=== PATIENT | female | born 1975 | race Caucasian/White ===

== ENCOUNTER 2022-06-01 10:15 | Outpatient (CLI) | payer BC, SELFPAY ==
--- NOTE | 2022-06-01 10:15 | CRLHL7_ITS ---
For Patients: As a result of the Century Cures Act, medical imaging exams and procedure reports are released immediately into your electronic medical record. You may view this report before your referring provider. If you have questions, please contact your health care provider. BILATERAL SCREENING MAMMOGRAM WITH COMPUTER-AIDED DETECTION AND TOMOSYNTHESIS TECHNIQUE: CC and MLO views were obtained. These mammographic images have been obtained using full-field digital technique. These mammographic images were interpreted with the benefit of computer-aided detection. Breast Tomosynthesis was used in this interpretation. COMPARISON FILM: 05/19/21, 03/14/20, 12/22/18. FINDINGS: The breasts are heterogeneously dense, which may obscure small masses IMPRESSION: There is no radiographic evidence for malignancy. ASSESSMENT: BI-RADS Category 1: Negative RECOMMENDATION: Routine screening mammogram in 1 year. A lay language report of this examination will be provided to the patient. Rene Bernardo M.D. Diagnostic Radiologist [email or web address] KAYLEE/Dictated by: Rene Bernardo MD @ 06/04/2022 10:26:00 AM (Electronically Signed)
== END 2022-06-01 10:16 | disposition home or self-care (01) ==
LOC: MAMMO 10:16
PROVIDERS: PCP Physician Assistant Medical; Visit Provider Physician Assistant Medical
DX: Z12.31 Encounter for screening mammogram for malignant neoplasm of breast (principal); R92.2 Inconclusive mammogram
CPT/HCPCS: 77063; 77067

== ENCOUNTER 2023-06-03 13:12 | Outpatient (CLI) | payer BC, SELFPAY ==
--- NOTE | 2023-06-03 13:20 | MM_ITS ---
Patient: JUNIOR PATEL CHASITY Facility:?[facility] Patient ID:?[id number] Site Patient ID:?[id number]. Site :?[id number] Study:?XRay-Breast Bilateral 3D W/CAD-06/03/2023 2:14:56 PM Ordering Physician:SHAD Final Report: BILATERAL SCREENING MAMMOGRAM WITH COMPUTER-AIDED DETECTION AND TOMOSYNTHESIS TECHNIQUE: CC and MLO views were obtained. These mammographic images have been obtained using full-field digital technique. These mammographic images were interpreted with the benefit of computer-aided detection. Breast Tomosynthesis was used in this interpretation. COMPARISON FILM: 06/01/22, 03/14/20, 12/22/18. FINDINGS: The breasts are heterogeneously dense, which may obscure small masses. IMPRESSION: There is no radiographic evidence for malignancy. ASSESSMENT: BI-RADS Category 1: Negative RECOMMENDATION: Routine screening mammogram in 1 year. A lay language report of this examination will be provided to the patient. Rene Bernardo M.D. Diagnostic Radiologist [email or web address] DSM/sp R& Transcribed: 6:46 p.m. SP/Dictated by: Rene Bernardo MD @ 06/04/2023 8:58:00 AM Signed by:Mike Bernardo MD @06/05/2023 5:43:26 AM (Electronic Signature)
== END 2023-06-03 13:13 | disposition home or self-care (01) ==
LOC: MAMMO 13:15
PROVIDERS: PCP Physician Assistant Medical; Visit Provider Nurse Practitioner
DX: Z12.31 Encounter for screening mammogram for malignant neoplasm of breast (principal); R92.2 Inconclusive mammogram
CPT/HCPCS: 77063; 77067

== ENCOUNTER 2023-07-19 08:10 | Outpatient (CLI) | payer BC, SELFPAY | END 2023-07-19 08:11 | disposition home or self-care (01) | LOC: NFLDREF 07-22 06:52 | PROVIDERS: PCP Physician Assistant Medical; Referring Provider Physician Assistant Medical; Visit Provider Physician Assistant Medical | DX: M25.50 Pain in unspecified joint (principal); E11.9 Type 2 diabetes mellitus without complications; Z13.220 Encounter for screening for lipoid disorders | CPT/HCPCS: 80053; 80061; 82043; 82570; 83090; 84443; 86039; 86140; 86200; 86431; 86703; 86803; 86812 ==

== ENCOUNTER 2023-08-22 09:17 | Outpatient (CLI) | payer BC, SELFPAY ==
--- OUTSIDE RECORDS SUMMARY | 2023-08-22 09:20 | XMS_ITS | Patient Health Record ---
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 Name Role Phone None, No PCP Primary Care Provider UnavailDarrius Mast Unavailable [phone] Lucie Rivera Unavailable [phone] Darrius Kwan Unavailable [phone] Waleska Hanley Unavailable [phone] Jesi Khan Unavailable [phone] EuNieves mclaughlin Unavailable [phone] Melissa Farrar Unavailable [phone] Allergies Allergen (clinical drug ingredient) Drug/Non Drug Allergy documented on EMR Reaction Allergy Type Onset Date Status PredniSONE Unknown Drug Allergy Active Results Component Value Reference Range Notes TESTOSTERONE, TOTAL, LC/MS/M S Reviewed date:09/02/2022 07:08:27 AM Interpretation: Performing Lab:Keanu PaintingFusion-[address] [address], [address] EnglandDsmkusrftkUV[address] Kin Prieto MD Notes/Report: TESTOSTERONE, TOTAL, MS 88 2-45 ng/dL For additional information, please refer to https://education.[email or web address].com/faq/TotalTestoste roneLCMSMS (This link is being provided for informational/educational purposes only.) (Note) This test was developed and its analytical performance characteristics have been determined by [email or web address]. It has not been cleared or approved by the FDA. This assay has been validated pursuant to the CLIA regulations and is used for clinical purposes. FAN med fusion [address] [facility] [place] [address],[address] [facility] [address] [phone] Kin Prieto MD VITAMIN D,25-OH,TOTAL,IA Reviewed date:09/02/2022 07:08:27 AM Interpretation: Performing Lab:JAY JAY niiu-D[address]om [address], [place] BlofYK[address] Herbert Miller Notes/Report: VITAMIN D,25-OH,TOTAL,IA 57 30-100 ng/mL Vitamin D Status 25-OH Vitamin D: Deficiency: <20 ng/mL Insufficiency: 20 - 29 ng/mL Optimal: > or = 30 ng/mL For 25-OH Vitamin D testing on patients on D2-supplementation and patients for whom quantitation of D2 and D3 fractions is required, the QuestAssureD(TM) 25-OH VIT D, (D2,D3), LC/MS/MS is recommended: order code 96074 (patients >2yrs). See Note 1 Note 1 For additional information, please refer to http://education.DataTorrent.DNAtriX/faq/ZHP697 (This link is being provided for informational/ educational purposes only.) FERRITIN Reviewed date:09/02/2022 07:08:27 AM Interpretation: Performing Lab:JAY JAY niiu-[address]om [address], [place] QunwWE[address] Herbert Miller Notes/Report: FERRITIN 245 16-232 ng/mL FSH Reviewed date:09/02/2022 07:08:27 AM Interpretation: Performing Lab:JAY JAY niiu-D[address]om [address], [place] VillalpandoMwpjLN[address] Herbert Miller Notes/Report: FSH 26.9 Reference Range Follicular Phase 2.5-10.2 Mid-cycle Peak 3.1-17.7 Luteal Phase 1.5- 9.1 Postmenopausal 23.0-116.3 VITAMIN B12 Reviewed date:09/02/2022 07:08:27 AM Interpretation: Performing Lab:JAY JAY niiu-[address], [place] LplfSH[address] Herbert Miller Notes/Report: VITAMIN B12 906 964-5175 pg/mL Please Note: Although the reference range for vitamin B12 is 200-1100 pg/mL, it has been reported that between 5 and 10% of patients with values between 200 and 400 pg/mL may experience neuropsychiatric and hematologic abnormalities due to occult B12 deficiency; less than 1% of patients with values above 400 pg/mL will have symptoms. ESTRADIOL Reviewed date:09/02/2022 07:08:27 AM Interpretation: Performing Lab:Essence GOYAL-Corey [address], [place] VillalpandoQuheKW[address] Herbert Miller Notes/Report: ESTRADIOL 81 Reference Range Follicular Phase: 19-144 Mid-Cycle: 64-357 Luteal Phase: 56-214 Postmenopausal: < or = 31 Reference range established on post-pubertal patient population. No pre-pubertal reference range established using this assay. For any patients for whom low Estradiol levels are anticipated (e.g. males, pre-pubertal children and hypogonadal/post-menopausal females), the niiu [facility] Estradiol, Ultrasensitive, LCMSMS assay is recommended (order code 23403). Please note: patients being treated with the drug fulvestrant (Faslodex(R)) have demonstrated significant interference in immunoassay methods for estradiol measurement. The cross reactivity could lead to falsely elevated estradiol test results leading to an inappropriate clinical assessment of estrogen status. niiu order code 95650-Aouxqzitf, Ultrasensitive LC/MS/MS demonstrates negligible cross reactivity with fulvestrant. CRP - C-REACTIVE PROTEIN Reviewed date:09/02/2022 07:08:27 AM Interpretation: Performing Lab:Essence GOYAL-Corey [address], [place] VillalpandoUylfHV[address] Herbert Miller Notes/Report: C-REACTIVE PROTEIN 6.2 <8.0 mg/L Test, Urine Reviewed date:05/14/2023 04:33:16 PM Interpretation: Performing Lab: Notes/Report: Test, Urine Negative Negative - CULTURE, URINE, ROUTINE Reviewed date:02/28/2023 04:21:35 PM Interpretation: Performing Lab:Essence GOYAL-Corey [address], [place]y PittmanDjpkJB[address] Herbert Miller Notes/Report: CULTURE, URINE, ROUTINE SEE NOTE CULTURE, URINE, ROUTINE Micro Number: [id number] Test Status: Final Specimen Source: Urine, clean catch Specimen Quality: Adequate Result: 50,000-100,000 CFU/mL of Escherichia coli E.coli INT FAUSTINO AMOX/CLAVULANATE S <=2 AMP/SULBACTAM S <=2 CEFAZOLIN NR <=4 2 CEFTAZIDIME S <=1 CEFTRIAXONE S <=0.25 CIPROFLOXACIN S <=0.06 GENTAMICIN S <=1 LEVOFLOXACIN S <=0.12 MEROPENEM S <=0.25 NITROFURANTOIN S <=16 TRIMETHOPRIM/SULFA S <=20 S=Susceptible I=Intermediate R=Resistant * = Not Tested NR = Not Reported NN = See Therapy Comments THERAPY COMMENTS Note 1: For infections other than uncomplicated UTI caused by E. coli, K. pneumoniae or P. mirabilis: Cefazolin is resistant if FAUSTINO > or = 8 mcg/mL. (Distinguishing susceptible versus intermediate for isolates with FAUSTINO < or = 4 mcg/mL requires additional testing.) Note 2: For uncomplicated UTI caused by E. coli, K. pneumoniae or P. mirabilis: Cefazolin is susceptible if FAUSTINO <32 mcg/mL and predicts susceptible to the oral agents cefaclor, cefdinir, cefpodoxime, cefprozil, cefuroxime, cephalexin and loracarbef. BD Affirm Reviewed date:02/20/2023 09:16:06 AM Interpretation: Performing Lab: Notes/Report: Trichomoniasis NEG Negative - Bacterial Vaginosis NEG Negative - Yeast NEG Negative - Urinalysis, Routine - IH Reviewed date:02/18/2023 01:28:22 PM Interpretation: Performing Lab: Notes/Report: Urine Color Yellow Yellow - Irma Appearance Clear Clear - Glucose Neg Bilirubin Neg Ketone Neg Specific [place] 1.025 Blood 10 jm/uL pH 5.5 Protein Neg Urobilinogen 0.2 mg/dL Nitrite Neg Leukocytes 15 Cisco/uL Urinalysis, Routine - IH Reviewed date:02/14/2023 10:56:48 AM Interpretation: Performing Lab: Notes/Report: Urine Color Yellow Yellow - Irma Appearance Clear Clear - Glucose - Bilirubin - Ketone - Specific [place] 1.010 Blood +- pH 6.0 Protein - Urobilinogen - Nitrite - Leukocytes +- TESTOSTERONE, TOTAL, LC/MS/M S Reviewed date:02/18/2023 01:00:30 PM Interpretation: Performing Lab:Garima, MedFusion-[address] [address], [address], EobzjdhcxhXU[address] Peter Grant MD Notes/Report: TESTOSTERONE, TOTAL, MS 85 2-45 ng/dL For additional information, please refer to [email or web address]/faq/TotalTestoste ivannaeLCMSMS (This link is being provided for informational/educational purposes only.) (Note) This test was developed and its analytical performance characteristics have been determined by [email or web address]. It has not been cleared or approved by the FDA. This assay has been validated pursuant to the CLIA regulations and is used for clinical purposes. NJF med fusion [address] [address],[address] [facility] [address] Peter Grant MD VITAMIN D,25-OH,TOTAL,IA Reviewed date:02/18/2023 01:00:30 PM Interpretation: Performing Lab:Essence GOYAL Virtual Fairground-Corey [address], DNA GuideGosaKY[address] Herbert Miller Notes/Report: VITAMIN D,25-OH,TOTAL,IA 64 30-100 ng/mL Vitamin D Status 25-OH Vitamin D: Deficiency: <20 ng/mL Insufficiency: 20 - 29 ng/mL Optimal: > or = 30 ng/mL For 25-OH Vitamin D testing on patients on D2-supplementation and patients for whom quantitation of D2 and D3 fractions is required, the QuestAssureD(TM) 25-OH VIT D, (D2,D3), LC/MS/MS is recommended: order code 43931 (patients >2yrs). See Note 1 Note 1 For additional information, please refer to http://Fullscreen.DataTorrent.DNAtriX/faq/IYK920 (This link is being provided for informational/ educational purposes only.) FSH Reviewed date:02/18/2023 01:00:30 PM Interpretation: Performing Lab:Essence GOYAL Virtual Fairground-[address], Qnect, llcTmuiDX[address] Herbert Miller Notes/Report: FSH 50.5 Reference Range Follicular Phase 2.5-10.2 Mid-cycle Peak 3.1-17.7 Luteal Phase 1.5- 9.1 Postmenopausal 23.0-116.3 VITAMIN B12 Reviewed date:02/18/2023 01:00:30 PM Interpretation: Performing Lab:JAY JAY Essence Virtual Fairground-Corey [address], [place] PittmanRuamXI[address] Herbert Miller Notes/Report: VITAMIN B12 389 252-6924 pg/mL ESTRADIOL Reviewed date:02/18/2023 01:00:29 PM Interpretation: Performing Lab:JAY JAY Essence Andrade-Corey [address], [place] VillalpandoAlwtGB[address] Herbert Miller Notes/Report: ESTRADIOL 23 Reference Range Follicular Phase: 19-144 Mid-Cycle: 64-357 Luteal Phase: 56-214 Postmenopausal: < or = 31 Reference range established on post-pubertal patient population. No pre-pubertal reference range established using this assay. For any patients for whom low Estradiol levels are anticipated (e.g. males, pre-pubertal children and hypogonadal/post-menopausal females), the niiu [facility] Estradiol, Ultrasensitive, LCMSMS assay is recommended (order code 58996). Please note: patients being treated with the drug fulvestrant (Faslodex(R)) have demonstrated significant interference in immunoassay methods for estradiol measurement. The cross reactivity could lead to falsely elevated estradiol test results leading to an inappropriate clinical assessment of estrogen status. niiu order code 30028-Khyimydos, Ultrasensitive LC/MS/MS demonstrates negligible cross reactivity with fulvestrant. CRP - C-REACTIVE PROTEIN Reviewed date:02/18/2023 01:00:29 PM Interpretation: Performing Lab:JAY JAY Essence Andrade-Corey [address], [place] VillalpandoOcrqIA[address] Herbert Miller Notes/Report: C-REACTIVE PROTEIN 12.4 <8.0 mg/L Test, Urine Reviewed date:01/23/2023 02:30:43 PM Interpretation: Performing Lab: Notes/Report: Test, Urine negative Negative - TESTOSTERONE, TOTAL, LC/MS/M S Reviewed date:11/23/2022 08:43:07 AM Interpretation: Performing Lab:Garima MedFusion-[address]xus[address] [address], [address], TragjbdftePH[address] Peter Grant MD Notes/Report: 0; 0; 0; 0; 0; 0; 0 TESTOSTERONE, TOTAL, MS 92 2-45 ng/dL For additional information, please refer to https://education.Linkurious/faq/TotalTestoste roneLCMSMS (This link is being provided for informational/educational purposes only.) (Note) This test was developed and its analytical performance characteristics have been determined by [email or web address]. It has not been cleared or approved by the FDA. This assay has been validated pursuant to the CLIA regulations and is used for clinical purposes. [facility] med fusion [address] [address],[address] [facility] [address] Peter Grant MD VITAMIN D,25-OH,TOTAL,IA Reviewed date:11/23/2022 08:43:07 AM Interpretation: Performing Lab:Essence GOYAL Virtual Fairground-[address], [place] LfvgCW[address] Herbert Miller Notes/Report: 0; 0; 0; 0; 0; 0; 0 VITAMIN D,25-OH,TOTAL,IA 67 30-100 ng/mL Vitamin D Status 25-OH Vitamin D: Deficiency: <20 ng/mL Insufficiency: 20 - 29 ng/mL Optimal: > or = 30 ng/mL For 25-OH Vitamin D testing on patients on D2-supplementation and patients for whom quantitation of D2 and D3 fractions is required, the QuestAssureD(TM) 25-OH VIT D, (D2,D3), LC/MS/MS is recommended: order code 81289 (patients >2yrs). See Note 1 Note 1 For additional information, please refer to http://education.DataTorrent.DNAtriX/faq/TFZ767 (This link is being provided for informational/ educational purposes only.) FERRITIN Reviewed date:11/23/2022 08:43:07 AM Interpretation: Performing Lab:JAY JAY niiu-Corey [address], [place] EwleYR[address] Herbert Miller Notes/Report: 0; 0; 0; 0; 0; 0; 0 FERRITIN 295 16-232 ng/mL FSH Reviewed date:11/23/2022 08:43:07 AM Interpretation: Performing Lab:JAY JAY niiu-Corey [address], [place] YcvtDQ[address] Herbert Miller Notes/Report: 0; 0; 0; 0; 0; 0; 0 FSH 17.6 Reference Range Follicular Phase 2.5-10.2 Mid-cycle Peak 3.1-17.7 Luteal Phase 1.5- 9.1 Postmenopausal 23.0-116.3 VITAMIN B12 Reviewed date:11/23/2022 08:43:07 AM Interpretation: Performing Lab:Essence GOYAL-Corey [address] [facility], Corey PittmanEycrMN[address] Herbert Miller Notes/Report: 0; 0; 0; 0; 0; 0; 0 VITAMIN B12 620 806-4597 pg/mL ESTRADIOL Reviewed date:11/23/2022 08:43:07 AM Interpretation: Performing Lab:Essence GOYAL-Corey [address], [place]y PittmanHpufYS[address] Herbert Miller Notes/Report: 0; 0; 0; 0; 0; 0; 0 ESTRADIOL 116 Reference Range Follicular Phase: 19-144 Mid-Cycle: 64-357 Luteal Phase: 56-214 Postmenopausal: < or = 31 Reference range established on post-pubertal patient population. No pre-pubertal reference range established using this assay. For any patients for whom low Estradiol levels are anticipated (e.g. males, pre-pubertal children and hypogonadal/post-menopausal females), the niiu [facility] Estradiol, Ultrasensitive, LCMSMS assay is recommended (order code 81986). Please note: patients being treated with the drug fulvestrant (Faslodex(R)) have demonstrated significant interference in immunoassay methods for estradiol measurement. The cross reactivity could lead to falsely elevated estradiol test results leading to an inappropriate clinical assessment of estrogen status. niiu order code 79082-Vddoirngr, Ultrasensitive LC/MS/MS demonstrates negligible cross reactivity with fulvestrant. CRP - C-REACTIVE PROTEIN Reviewed date:11/23/2022 08:43:06 AM Interpretation: Performing Lab:Essence GOYAL [facility]-[address], [place] PittmanIdzfNU[address] Herbert Miller Notes/Report: 0; 0; 0; 0; 0; 0; 0 C-REACTIVE PROTEIN 9.2 <8.0 mg/L Test, Urine Reviewed date:09/03/2022 09:25:29 AM Interpretation: Performing Lab: Notes/Report: Test, Urine Negative Negative - FERRITIN Reviewed date:06/06/2023 02:48:11 PM Interpretation: Performing Lab:JAY JAY, niiu-Corey [address], [place]y PittmanIiitVN[address] Herbert Miller Notes/Report: 0; 0; 0; 0; 0; 0; 0 FERRITIN 365 16-232 ng/mL VITAMIN D,25-OH,TOTAL,IA Reviewed date:06/06/2023 02:48:11 PM Interpretation: Performing Lab:JAY JAY, niiu-Corey [address], [place] QmcqSK[address] Herbert Miller Notes/Report: 0; 0; 0; 0; 0; 0; 0 VITAMIN D,25-OH,TOTAL,IA 81 30-100 ng/mL Vitamin D Status 25-OH Vitamin D: Deficiency: <20 ng/mL Insufficiency: 20 - 29 ng/mL Optimal: > or = 30 ng/mL For 25-OH Vitamin D testing on patients on D2-supplementation and patients for whom quantitation of D2 and D3 fractions is required, the QuestAssureD(TM) 25-OH VIT D, (D2,D3), LC/MS/MS is recommended: order code 62723 (patients >2yrs). See Note 1 Note 1 For additional information, please refer to http://Fullscreen.Runfaces/faq/RRT742 (This link is being provided for informational/ educational purposes only.) TESTOSTERONE, TOTAL, LC/MS/M S Reviewed date:06/06/2023 02:48:11 PM Interpretation: Performing Lab:Lola3Rhianna, MedFusion-UuaGzykvq[address] [address], [address], YbtgzdnezwOF[address] Myrtle Rosado MD Notes/Report: 0; 0; 0; 0; 0; 0; 0 TESTOSTERONE, TOTAL, MS 60 2-45 ng/dL For additional information, please refer to [email or web address]/faq/TotalTestoste ivannaeLCMSMS (This link is being provided for informational/educational purposes only.) (Note) This test was developed and its analytical performance characteristics have been determined by [email or web address]. It has not been cleared or approved by the FDA. This assay has been validated pursuant to the CLIA regulations and is used for clinical purposes. FAN med fusion [address] [address],[address] [facility] [address] Peter Grant MD Test, Urine Reviewed date:08/12/2023 01:07:16 PM Interpretation: Performing Lab: Notes/Report: GLUCOSE, RANDOM Reviewed date:07/01/2023 03:12:17 PM Interpretation: Performing Lab:CB, niiu-[address], [place]y VillalpandoXzbzDP[address] Herbert Miller Notes/Report: 0; 0; 0 GLUCOSE, RANDOM 149 <140 mg/dL It is recommended that a fasting glucose level be performed. CRP - C-REACTIVE PROTEIN Reviewed date:07/01/2023 03:12:17 PM Interpretation: Performing Lab:CB, niiu-[address], [place] XmcwNY[address] Herbert Miller Notes/Report: 0; 0; 0 C-REACTIVE PROTEIN 7.5 <8.0 mg/L HEMOGLOBIN A1c Reviewed date:07/01/2023 03:12:17 PM Interpretation: Performing Lab:CB, niiu-[address], [place] SlacQX[address] Herbert Miller Notes/Report: 0; 0; 0 HEMOGLOBIN A1c 6.4 <5.7 % of total Hgb For someone without known diabetes, a hemoglobin A1c value between 5.7% and 6.4% is consistent with prediabetes and should be confirmed with a follow-up test. For someone with known diabetes, a value <7% indicates that their diabetes is well controlled. A1c targets should be individualized based on duration of diabetes, age, comorbid conditions, and other considerations. This assay result is consistent with an increased risk of diabetes. Currently, no consensus exists regarding use of hemoglobin A1c for diagnosis of diabetes for children. This test was performed on the Vito jake c503 platform. Effective 06/05/23, a change in test platforms from the [employer] Cnc Lathe Machine Operator to the Vito jake c503 may have shifted HbA1c results compared to historical results. Based on laboratory validation testing conducted at [employer], the Vito platform relative to the Rosas platform had an average increase in HbA1c value of < or = 0.3%. This difference is within accepted variability established by the National Glycohemoglobin Standardization Program. Note that not all individuals will have had a shift in their results and direct comparisons between historical and current results for testing conducted on different platforms is not recommended. CRP - C-REACTIVE PROTEIN Reviewed date:03/22/2023 03:35:38 PM Interpretation: Performing Lab:JAY JAY niiu-Dokk[place]om [address], DNA GuideGwgdCA[address] Herbert Miller Notes/Report: 0; 0; 0; 0; 0; 0; 0; 0; 0 C-REACTIVE PROTEIN 9.9 <8.0 mg/L HEMOGLOBIN A1c Reviewed date:03/22/2023 03:35:38 PM Interpretation: Performing Lab:JAY JAY [address], DNA GuideDfmtNO[address] Herbert Miller Notes/Report: 0; 0; 0; 0; 0; 0; 0; 0; 0 HEMOGLOBIN A1c 7.3 <5.7 % of total Hgb For someone without known diabetes, a hemoglobin A1c value of 6.5% or greater indicates that they may have diabetes and this should be confirmed with a follow-up test. For someone with known diabetes, a value <7% indicates that their diabetes is well controlled and a value greater than or equal to 7% indicates suboptimal control. A1c targets should be individualized based on duration of diabetes, age, comorbid conditions, and other considerations. Currently, no consensus exists regarding use of hemoglobin A1c for diagnosis of diabetes for children. HOMOCYSTEINE (Insurance Bill ONLY) Reviewed date:03/26/2023 08:59:25 AM Interpretation: Performing Lab:JAY JAY niiu-D[address]om [address], DNA GuideFfhhOM[address] Herbert Miller Notes/Report: 0; 0; 0; 0; 0; 0; 0; 0; 0 HOMOCYSTEINE 8.6 <10.4 umol/L Homocysteine is increased by functional deficiency of folate or vitamin B12. Testing for methylmalonic acid differentiates between these deficiencies. Other causes of increased homocysteine include renal failure, folate antagonists such as methotrexate and phenytoin, and exposure to nitrous oxide. star Kurtz al., Za [employer] Tag Stringer Med. 1999;131(5):331-9. ESTRADIOL Reviewed date:03/22/2023 03:35:38 PM Interpretation: Performing Lab:JAY JAY [facility] [address], [place] WxvfAZ[address] Herbert Miller Notes/Report: 0; 0; 0; 0; 0; 0; 0; 0; 0 ESTRADIOL 138 Reference Range Follicular Phase: 19-144 Mid-Cycle: 64-357 Luteal Phase: 56-214 Postmenopausal: < or = 31 Reference range established on post-pubertal patient population. No pre-pubertal reference range established using this assay. For any patients for whom low Estradiol levels are anticipated (e.g. males, pre-pubertal children and hypogonadal/post-menopausal females), the niiu [facility] Estradiol, Ultrasensitive, LCMSMS assay is recommended (order code 19594). Please note: patients being treated with the drug fulvestrant (Faslodex(R)) have demonstrated significant interference in immunoassay methods for estradiol measurement. The cross reactivity could lead to falsely elevated estradiol test results leading to an inappropriate clinical assessment of estrogen status. niiu order code 90955-Jfxzncyfs, Ultrasensitive LC/MS/MS demonstrates negligible cross reactivity with fulvestrant. VITAMIN B12 Reviewed date:03/22/2023 03:35:38 PM Interpretation: Performing Lab:JAY JAY niiu-[address], [place] ZokiEH[address] Herbert Miller Notes/Report: 0; 0; 0; 0; 0; 0; 0; 0; 0 VITAMIN B12 865 281-9149 pg/mL FSH Reviewed date:03/22/2023 03:35:38 PM Interpretation: Performing Lab:JAY JAY [employer] LupeCorey [address], [facility] HospitalXwszJM[address] Herbert Miller Notes/Report: 0; 0; 0; 0; 0; 0; 0; 0; 0 FSH 9.5 Reference Range Follicular Phase 2.5-10.2 Mid-cycle Peak 3.1-17.7 Luteal Phase 1.5- 9.1 Postmenopausal 23.0-116.3 VITAMIN D,25-OH,TOTAL,IA Reviewed date:03/22/2023 03:35:38 PM Interpretation: Performing Lab:JAY JAY niiu-D[address], DNA GuideWhodQX[address] Herbert Miller Notes/Report: 0; 0; 0; 0; 0; 0; 0; 0; 0 VITAMIN D,25-OH,TOTAL,IA 62 30-100 ng/mL Vitamin D Status 25-OH Vitamin D: Deficiency: <20 ng/mL Insufficiency: 20 - 29 ng/mL Optimal: > or = 30 ng/mL For 25-OH Vitamin D testing on patients on D2-supplementation and patients for whom quantitation of D2 and D3 fractions is required, the QuestAssureD(TM) 25-OH VIT D, (D2,D3), LC/MS/MS is recommended: order code 00948 (patients >2yrs). See Note 1 Note 1 For additional information, please refer to http://education.DataTorrent.DNAtriX/faq/STZ902 (This link is being provided for informational/ educational purposes only.) TESTOSTERONE, TOTAL, LC/MS/M S Reviewed date:03/26/2023 08:59:25 AM Interpretation: Performing Lab:ZAdams, Silicon[employer] TechnologiesFusion-NmbBopemz[address] [place] [address], [address], VixulavkxoMK[address] Peter Grant MD Notes/Report: 0; 0; 0; 0; 0; 0; 0; 0; 0 TESTOSTERONE, TOTAL, MS 229 2-45 ng/dL For additional information, please refer to https://education.Linkurious/faq/TotalTestoste roneLCMSMS (This link is being provided for informational/educational purposes only.) (Note) This test was developed and its analytical performance characteristics have been determined by [email or web address]. It has not been cleared or approved by the FDA. This assay has been validated pursuant to the CLIA regulations and is used for clinical purposes. [facility] med fusion [address] [address],[address] [facility] [address] Peter Grant MD TESTOSTERONE, FREE Reviewed date:03/26/2023 08:59:25 AM Interpretation: Performing Lab:Z3Rhianna, [employer]-OurRuznwz[address] [address], [address], EgcjkakvfsRE[address] Peter Grant MD Notes/Report: 0; 0; 0; 0; 0; 0; 0; 0; 0 TESTOSTERONE, FREE 39.1 0.2-5.0 pg/mL (Note) The concentration of free testosterone is derived from a mathematical model using total testosterone by LCMSMS, sex hormone binding globulin and albumin. This test was developed and its analytical performance characteristics have been determined by [employer]. It has not been cleared or approved by the FDA. This assay has been validated pursuant to the CLIA regulations and is used for clinical purposes. [facility] med fusion [address] [address],[address] [facility] [address] Peter Grant MD CRP - C-REACTIVE PROTEIN Reviewed date:06/06/2023 02:48:11 PM Interpretation: Performing Lab:[facility] [address], [place] [id number] Herbert Miller Notes/Report: 0; 0; 0; 0; 0; 0; 0 C-REACTIVE PROTEIN 16.2 <8.0 mg/L ESTRADIOL Reviewed date:06/06/2023 02:48:11 PM Interpretation: Performing Lab:[facility] [address], [place] [id number] Herbert Miller Notes/Report: 0; 0; 0; 0; 0; 0; 0 ESTRADIOL 98 Reference Range Follicular Phase: 19-144 Mid-Cycle: 64-357 Luteal Phase: 56-214 Postmenopausal: < or = 31 Reference range established on post-pubertal patient population. No pre-pubertal reference range established using this assay. For any patients for whom low Estradiol levels are anticipated (e.g. males, pre-pubertal children and hypogonadal/post-menopausal females), the [facility] Estradiol, Ultrasensitive, LCMSMS assay is recommended (order code 35160). Please note: patients being treated with the drug fulvestrant (Faslodex(R)) have demonstrated significant interference in immunoassay methods for estradiol measurement. The cross reactivity could lead to falsely elevated estradiol test results leading to an inappropriate clinical assessment of estrogen status. [facility] order code 52606-Lqiirchcg, Ultrasensitive LC/MS/MS demonstrates negligible cross reactivity with fulvestrant. VITAMIN B12 Reviewed date:06/06/2023 02:48:11 PM Interpretation: Performing Lab:[facility] [address], [place], [id number] Herbert Miller Notes/Report: 0; 0; 0; 0; 0; 0; 0 VITAMIN B12 698 234-3701 pg/mL FSH Reviewed date:06/06/2023 02:48:11 PM Interpretation: Performing Lab:CB, [facility] [address], [place] BenavidezPockWP[address] Herbert Miller Notes/Report: 0; 0; 0; 0; 0; 0; 0 FSH 14.1 Reference Range Follicular Phase 2.5-10.2 Mid-cycle Peak 3.1-17.7 Luteal Phase 1.5- 9.1 Postmenopausal 23.0-116.3 Reason For Referral No Information Medications Medication SIG (Take, Route, Frequency, Duration) Notes Start Date End Date Status Estrogen Pellets Act gabby Testosterone Pellets Active Resveratrol Ultra Ac tive UBQH Active Nitrofurantoin Monohyd Macro 100 MG 1 capsule with food Orally every 12 hrs for 5 days 02/26/2023 Active Clotrimazole-Betamethasone 1-0.05 % 1 application Externally 1-2 times a day as needed for 7 days 02/14/2023 Active Magnesium Active Vitamin D Active Mirena (52 MG) 20 MCG/24HR as directed Intrauterine 12/29/2018 Active HERBAL SUPPLEMENT Hemp Oil Ac tive Social History Tobacco Use: Social History Observation Description Date Details (start date - stop date) Never Smoker NA - NA Tobacco Use/Smoking Question Answer Notes Are you a nonsmoker Alcohol Screen (Audit-C) Question Answer Notes Did you have a drink containing alcohol in the p ast year? Yes Points 0 Interpretation Negative Problems Problem Type SNOMED Code ICD Code Onset Dates Problem Status W/U Status Risk Notes Problem Menopause (604141907) Menopausal and female climacteric states (N95.1) Active confirmed Problem Menopausal and postmenopausal disorders (554977151) Unspecified menopausal and perimenopausal disorder (N95.9) Active confirmed Problem Vaginitis (55162787) Vaginitis (N76.0) Active confirmed Problem Female climacteric state (363035236) Female climacteric state (N95.1) Active confirmed Problem Menopausal and postmenopausal disorders (077367881) Menopausal and perimenopausal disorder (N95.9) Active confirmed Problem Chronic fatigue syndrome (45095120) Chronic fatigue (R53.82) Active confirmed Problem 61289181 Vitamin D deficiency (E55.9) Active confirmed Problem Menopause (798353480) Climacteric (N95.1) Active confirmed Problem test negative (487062068) Negative test (Z32.02) Active confirmed Problem 308589129 Subacute vulvitis (N76.3) Active confirmed Problem Pre-procedure evaluation check (982748227) Pre-procedural examination (Z01.818) Active confirmed Problem Protein C deficiency (97277192) Protein C deficiency (D68.59) Active confirmed Problem Vitamin deficiency (08095463) Vitamin deficiency (E56.9) Active confirmed Problem C-reactive protein abnormal (116972414) CRP elevated (R79.82) Active confirmed Problem Type 2 diabetes mellitus (09045115) Type 2 diabetes mellitus (E11.9) Active confirmed added per provider referral Problem Vitamin D deficiency (03998245) H/O vitamin D deficiency (Z86.39) Active confirmed Vital Signs Blood pressure diastolic 70 mm Hg 06/10/2023 Height 62 in 06/10/2023 Blood pressure systolic 118 mm Hg 06/10/2023 Weight 161.6 lbs 06/10/2023 BMI 29.55 kg/m2 06/10/2023 Encounters Encounter Location Date Provider Diagnosis [address] [address] 02/18/2023 Lucie Grazette Vaginitis N76.0 ; Subacute vulvitis N76.3 ; Vaginal discharge N89.8 ; Hematuria, unspecified type R31.9 and Urine leukocytes R82.[address] [address] 02/25/2023 Darrius Kwan Menopausal and femal e climacteric states N95.1 and Chronic fatigue R53.[address] [address] 06/10/2023 Darrius Kwan Encounter for pre-operative laboratory testing Z01.812 ; Perimenopausal disorder N95.9 ; Type 2 diabetes mellitus E11.9 ; Female climacteric N95.1 ; History of Lyme disease Z86.19 and CRP elevated R79.[address] [address] 09/03/2022 Darrius Kwan Negative test Z32.02 ; Menopausal and female climacteric states N95.1 and Chronic fatigue R53.[address] [address] 11/26/2022 Darrius Kwan Climacteric N95.1 ; Chronic fatigue R53.82 and History of Lyme disease Z86.19 [facility] [address] [place] [address] 06/03/2023 Darrius Kwan Menopausal and femal e climacteric states N95.1 [facility] [address] [place] [address] 06/28/2023 Darrius Kwan Type 2 diabetes mellitus E11.9 and Chronic fatigue R53.[address] [address] 11/26/2022 Darrius Kwan Pre-procedural examination Z01.818 [facility] [address] [place] [address] 02/14/2023 Darrius Kwan Menopausal and femal e climacteric states N95.1 and Vitamin deficiency E56.[address] [address] 02/18/2023 Luciemichael Rivera Vaginitis N76.0 [facility] [address] [place] [address] 02/18/2023 Lucie Miguel Vaginitis N76.0 and Dysuria R30.[address] [address] 02/25/2023 Darrius Kwan Pre-procedural examination Z01.818 [facility] [address] [place] [address] 03/21/2023 Darrius Kwan Diabetes mellitus screening Z13.1 ; Fatigue R53.83 and Lyme disease, unspecified A69.20 [facility] [address] [place] [address] 08/28/2022 Darrius Kwan History of Lyme disease Z86.19 ; Climacteric N95.1 ; H/O vitamin D deficiency Z86.39 and Chronic fatigue R53.82 [facility] [address] [place] [address] 11/19/2022 Darrius Kwan Climacteric N95.1 [facility] [address] [place] [address] 04/11/2023 Waleskase Hodgemasoud Type 2 diabetes mellitus E11.[address] [facility] [address] [place] [address] 02/14/2023 Nieves Eul Suspected UTI N39.0 and Acute vaginitis N76.[address] [facility] [address] [place] [address] 02/11/[address] [facility] [address] [place] [address] 03/22/2023 Darrius Kwan [facility] [address] [place] [address] 05/16/2023 Darrius Kwan [facility] [address] [place] [address] 02/26/2023 Darrius Kwan [facility] [address] [place] [address] 02/28/2023 Lucie Rivera [facility] [address] [place] [address] 03/22/2023 Darrius Kwan [facility] [address] [place] [address] 04/10/2023 Darrius Kwan [facility] [address] [place] [address] [place] [address] 04/12/2023 Jesi Khan [address] [address] 04/18/2023 Darrius Kwan Type 2 diabetes mellitus E11.[address] [place] [address] 02/18/2023 Lucie Rivera Assessments Encounter Date Diagnosis (ICD Code) Assessment Notes Treatment Notes Treatment Clinical Notes 08/28/2022 History of Lyme disease (ICD-10 - Z86.19) 09/03/2022 Menopausal and female climacteric states (ICD-10 - N95.1) 09/03/2022 Negative test (ICD-10 - Z32.02) 11/26/2022 Chronic fatigue (ICD-10 - R53.82) 11/26/2022 Climacteric (ICD-10 - N95.1) 11/26/2022 Pre-procedural examination (ICD-10 - Z01.818) 02/14/2023 Acute vaginitis (ICD-10 - N76.0) Vaginal irritation, cobblestoned appearance Lotrisone sent to pharmacy. Pt to call if her symptoms do not improve 15 minutes spent on chart review, in face to face time with patient, documentation of above and coordination of care. 02/14/2023 Suspected UTI (ICD-10 - N39.0) UA not consistent with UTI 02/14/2023 Menopausal and female climacteric states (ICD-10 - N95.1) 02/18/2023 Vaginitis (ICD-10 - N76.0) BD affirm taken. Patient would prefer cream for treatment. An urinalysis done showed blood and leucocytes to be present in her urine. It will be sent for culture She was instructed to drink lots of water. Also, call if she developed a fever or loin pain. She was instructed to abstain from sexual activity until her condition has resolved All of her questions were addressed 02/18/2023 Subacute vulvitis (ICD-10 - N76.3) It was explained to the patient that she appears to have a subacute vulvitis. The area around her clitoris where she perceives that there is a lump is mildly swollen.and tender to the touch. It was recommended that she take sitz baths with 1 cup (0.24 l) of Epsom salts in the water. They would soothe the skin and decrease the inflammation. She would be called with her test results and management. All of her questions were addressed 02/18/2023 Vaginitis (ICD-10 - N76.0) 02/25/2023 Menopausal and female climacteric states (ICD-10 - N95.1) 02/25/2023 Chronic fatigue (ICD-10 - R53.82) 02/25/2023 Pre-procedural examination (ICD-10 - Z01.818) 02/18/2023 Vaginitis (ICD-10 - N76.0) 03/21/2023 Diabetes mellitus screening (ICD-10 - Z13.1) 04/11/2023 Type 2 diabetes mellitus (ICD-10 - E11.9) added per provider referral 04/18/2023 Type 2 diabetes mellitus (ICD-10 - E11.9) 06/03/2023 Menopausal and female climacteric states (ICD-10 - N95.1) 06/10/2023 Perimenopausal disorder (ICD-10 - N95.9) 06/10/2023 Encounter for pre-operative laboratory testing (ICD-10 - Z01.812) 06/28/2023 Type 2 diabetes mellitus (ICD-10 - E11.9) 06/28/2023 Chronic fatigue (ICD-10 - R53.82) 06/10/2023 Type 2 diabetes mellitus (ICD-10 - E11.9) Would like consult with Dr. Farrar, Functional Medicine MD Repeat fasting glucose, HgA1 later this week 02/18/2023 Dysuria (ICD-10 - R30.0) 03/21/2023 Fatigue (ICD-10 - R53.83) 02/18/2023 Vaginal discharge (ICD-10 - N89.8) As above 02/14/2023 Vitamin deficiency (ICD-10 - E56.9) 11/26/2022 History of Lyme disease (ICD-10 - Z86.19) 11/19/2022 Climacteric (ICD-10 - N95.1) 09/03/2022 Chronic fatigue (ICD-10 - R53.82) 08/28/2022 Climacteric (ICD-10 - N95.1) 08/28/2022 H/O vitamin D deficiency (ICD-10 - Z86.39) 02/18/2023 Hematuria, unspecified type (ICD-10 - R31.9) 03/21/2023 Lyme disease, unspecified (ICD-10 - A69.20) 08/28/2022 Chronic fatigue (ICD-10 - R53.82) 06/10/2023 Female climacteric (ICD-10 - N95.1) 06/10/2023 History of Lyme disease (ICD-10 - Z86.19) 02/18/2023 Urine leukocytes (ICD-10 - R82.998) 06/10/2023 CRP elevated (ICD-10 - R79.82) Repeat CRP with next labs 09/03/2022 Other -HRT pellet inserted as documented above without complication -Post-insertion instructions reviewed. Printed handout with instructions given along with ice pack. Repeat ice to insertion site for 20 min. 3-5 times a day PRN for soreness at insertion site -Report any signs of infection or pellet expulsion -Repeat labs in 3 months (E2, FSH, total testosterone) with next insertion 1 week later -Follow up as needed before next insertion if any concerns 11/26/2022 Other -HRT pellet inserted as documented above without complication -Post-insertion instructions reviewed. Printed handout with instructions given along with ice pack. Repeat ice to insertion site for 20 min. 3-5 times a day PRN for soreness at insertion site -Report any signs of infection or pellet expulsion -Repeat labs in 3 months (E2, FSH, total testosterone, CRP, vitamin D, vitamin B12) with next insertion 1 week later -Follow up as needed before next insertion if any concerns 02/18/2023 Other Time spent on patient care including - review of previous records - preparation for visit - ordering medications, labs or imaging - documenting visit - discussion of care with another health health care analyst if indicated - direct face to face time with patient including obtaining relevant history, physical exam and discussion of plan of care Total time was 25 minutes spent including some or all of above listed required for care of patient talking about diagnosis, treatment and plan of care outside of usual preventive care with the patient as listed in the treatment portion of the note 02/25/2023 Other -HRT pellet inserted as documented above without complication -Post-insertion instructions reviewed. Printed handout with instructions given along with ice pack. Repeat ice to insertion site for 20 min. 3-5 times a day PRN for soreness at insertion site -Report any signs of infection or pellet expulsion -Repeat labs in 3 months (E2, FSH, total testosterone) with next insertion 1 week later -Follow up as needed before next insertion if any concerns 04/11/2023 Other Elevated blood sugar related to excessive carbohydrate and sugar intake and lack of physcial activity as evidenced by Hgb A1c of 7% and newly diagnosed type 2 DM. Interventions/Goals: - Encouraged patient to follow Plate Method (1/2 plate non-starchy vegetables, 1/4 plate protein, 1/4 plate complex carbohydrates + healthy fat) as a general guideline for portions at meals - Discussed relationship between carbohydrate/sugar intake, blood sugar, insulin, and weight. Discussed how to balance blood sugars with food, movement, stress management, and healthy sleep hygiene. - Include 2-3 servings of carbohydrates with all meals (30-45 grams/meal) in addition to protein, healthy fat, and non-starchy vegetables. - Encouraged increased physical activity as able and discussed blood sugar benefits of walking/moving body 20 minutes after eating a meal rather than laying down. - Encouraged her to avoid intermittent fasting if it is not realistic to continue correction for her. - Used motivational interviewing techniques to help guide patient towards setting own goals and reasons for change - Provided the following resources (emailed): plate method handout, NCM carb counting guide, diabetes food hub link with recipes. Total time spent with patient: 60 minutes The visit was conducted with the use of audio and visual telecommunications system that permits real time comunication between patient and provider. Patient consent for virtual visit was obtained. [place] [facility] [place] [facility] [place] Distant site: pt home Discuss at follow up: Mediterranean eating pattern 06/10/2023 Other -HRT pellet inserted as documented above without complication -Post-insertion instructions reviewed. Printed handout with instructions given along with ice pack. Repeat ice to insertion site for 20 min. 3-5 times a day PRN for soreness at insertion site -Report any signs of infection or pellet expulsion -Repeat labs in 3 months (E2, FSH, total testosterone) with next insertion 1 week later -Follow up as needed before next insertion if any concerns Plan Of Treatment Next Appt Details Provider Name:Darrius Kwan, 08/23/2023 08:30:00 AM, [address] [place], [address], Provider Name:Darrius Kwan, 09/03/2023 10:30:00 AM, [address], [place], [address], Insurance Providers Payer Name Payer Address Payer Phone Subscriber Number Group Number Insured Name Patient Relationship to Insured Coverage Start Date Coverage End Date [employer] - (Client Bill) [address] [place] [phone] [id number] DARRIUS POOLE Self - patient is the insured Medical (General) History Medical History History ICD Code Bleeding Problems GDM Surgical History Surgery Date(Month/Year) 2016
--- OUTSIDE RECORDS SUMMARY | 2023-08-22 09:20 | XMS_ITS | Clinical Summary ---
Author Organization [facility] Address [address] [place] [address] Care Team Providers Care Chemical Dependency Professional Name Role Phone No Primary/Referring, Phy Primary Care Provider Unavailable Source Comments You are receiving this document as you are listed as the primary care provider,follow-up provider, or the patient has been referred to you for consultation.This is in compliance with the Medicare and[facility] Cent[facility]aid EHR Incentive Program,which states Providers who transition their patient to another setting of careor provider of care or refers their patient to another provider of care shouldprovide summary care record for each transition of care or referral. [employer] Allergies Active Allergy Reactions Criticality Noted Date Comments Prednisone 12/21/2015 Review Contrast Media 05/19/2008 PN: LW CM1: >>> NO CONTRAST ADVERSE REACTION <<< Reaction : Medications Medication Sig Dispensed Refills Start Date End Date Status omega-3 fatty acids (FISH OIL) 1000 MG capsule Indications: PN: 06/15/2010 Active ibuprofen (ADVIL) 200 MG tablet Take 2-4 tablets by mouth 3 times daily as needed. 05/19/2008 Active DRUG NOT IN COMPUTERIndications: Herbal supplement Take by mouth. Indications: Herbal supplement 07/18/2012 Active Naproxen Sodium (ALEVE) 220 MG Take by mouth as needed. 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/2008 Overview: LW Modifier: Transient, left hip ; Monoarthritis Inflammatory Immunizations Name Administration Dates Next Due DT Ped 12/19/1990 HepA Adult (19+ yrs) 08/20/2000 HepB, Unspecified Formulation 11/06/2000 MMR 12/19/1990 Td 08/20/2000 Family History Medical History Relation Name Comments Diabetes Father Relation Name Status Comments Father Alive Mother Alive Brother Alive Maternal Grandfather Maternal Grandmother Paternal Grandfather Paternal Grandmother Social History Tobacco Use Types Packs/Day Years Used Date Smoking Tobacco: Never Smokeless Tobacco: Never Alcohol Use Standard Drinks/Week Comments No 0 (1 standard drink = 0.6 oz pur e alcohol) occ Sex and Gender Information Value Date Recorded Sex Assigned at Not on file Gender Identity Not on file Sexual Orientation Not on file Last Filed Vital Signs Vital Sign Reading Time Taken Comments Blood Pressure 121/75 09/09/2018 4:37 PM CDT Pulse 72 10/07/2012 8:46 AM CDT Temperature 36.8 ??C (98.2 ??F) 09/09/2018 4:37 PM CD T Respiratory Rate 18 05/18/2008 3:13 PM SPLITTING MACHINE OPERATOR HELPER Oxygen Saturation - - Inhaled Oxygen Concentration - - Weight 70.3 kg (155 lb) 09/09/2018 4:37 PM CDT Height 157.5 cm (5' 2) 09/09/2018 4:37 PM CDT Body Mass Index 28.35 09/09/2018 4:37 PM CDT Plan of Treatment Health Maintenance Due Date Last Done Comments Colon Cancer Screening Plan Due 1975 Hep C Screening (Preventive Services) 1975 Adult Preventive Visit 1994 HepB (2) 12/04/2000 11/06/2000 HepA (2 of 2 - Risk 2-dose series) 02/20/2001 08/20/2000 DTaP/Tdap/Td (3 - Tdap) 08/20/2010 08/20/2000, 12/19 Cervical Cancer Screening Due 07/19/2012 07/18/2012, 01/02/2010, 12/12/2007, Additional history exists Cholesterol 2021 07/18/2012 COVID-19 Vaccine ( season) 2022 Influenza (Season Ended) 2023 Zoster/Shingles (1 of 2) 2026 HIV Screening (Preventive Services) Completed 03/16/1997 Hib Aged Out No longer eligi ble based on patient's age to complete this topic IPV (Polio) Aged Out No longer eligi ble based on patient's age to complete this topic MCV4 Aged Out No longer eligi ble based on patient's age to complete this topic Pneumococcal Aged Out No longer eligi ble based on patient's age to complete this topic Procedures Procedure Name Priority Date/Time Associated Diagnosis Comments ANATOMICAL PATH LIQUID BASED Routine 07/18/2012 3:46 PM CDT LIPID PANEL & DIRECT LDL (IF NEEDED) Routine 07/18/2012 8:58 AM CDT Screening for lipoid disorders HIV ANTIBODY Routine 03/16/1997 3:50 PM SPLITTING MACHINE OPERATOR HELPER from Last 3 Months or Most Recently Relevant to Health Maintenance Results * Pap Smear (07/18/2012 3:46 PM CDT) 07/18/2012 3:46 PM CDT Narrative HP CONVERSION - 07/24/2012 8:00 AM CDT FINAL GYNECOLOGICAL CYTOLOGY REPORT Pathology #: [id number] ?Date Obtained: 07/18/2012 ? Date Received: 07/21/2012 INTERPRETATION/RESULTS: Negative for Intraepithelial Lesion or Malignancy SPECIMEN ADEQUACY: Satisfactory for Evaluation. ??Endocervical cells/transformation zone component present. Verified on 07/24/2012 ??by TOSHA YORK(ASCP) (electronic signature) CLINICAL NOTES: ?LMP: Not Stated LIQUID BASED PAP SMEAR SPECIMEN TYPE: ?CERVICAL WITH REFLEX TO HPV IF ASCUS PLEASE NOTE: The pap smear is a screening test designed to aid in the detection of cervical cancer and its precursor lesions. It is not a diagnostic procedure and should not be used as the sole means of detecting cervical cancer. Both false-positive and false-negative reports may occur. ? End of Report Ellie Greene APRN, CNP LAB_1 Performing Organization Address [facility] de Phone Number HP CONVERSION * Lipid Panel and Direct LDL(If Needed) (07/18/2012 8:58 AM CDT) Cholesterol 163 0 - 200 mg/dL HP CONVERSION Triglycerides 44 0 - 149 mg/dL HP CONVERSION HDL Cholesterol 66 >39 mg/dL HP CONVERSION Cholesterol/HDL Ratio Screen 2.5 HP CONVERSION LDL Calculated 88 19 - 130 mg/dL HP CONVERSION Hours Fasting 12.0 HP CONVERSION 07/18/2012 8:58 AM CDT 07/18/2012 8:58 AM CDT Narrative HP CONVERSION - 07/18/2012 9:38 AM CDT Performed at [facility], [address] [place] [address] Transcriptions 05/11/2016 8:08 AM CSTNotes Recorded by Ellie Greene CATHY on 07/18/2012 at 4:09 PMPt aware of results Ellie Greene APRN, CNP LAB_1 Performing Organization Address [facility] de Phone Number HP CONVERSION * HIV Antibody (03/16/1997 3:50 PM SPLITTING MACHINE OPERATOR HELPER) HIV 1/HIV 2 Non Reac Non Reac IU/ML HP CONVERSION 03/16/1997 3:50 PM SPLITTING MACHINE OPERATOR HELPER Silvio Degn MD LAB_1 Performing Organization Address [facility] [[email or web address]] Co de Phone Number HP CONVERSION from Last 3 Months or Most Recently Relevant to Health Maintenance Care Teams Chemical Dependency Professional Relationship Specialty Start Date End Date No Primary/Referring, Phy PCP - General 09/09/18
--- NOTE | 2023-08-22 10:53 | W.ANESCHARGE ---
Anesthesia Charges Start Date/Time Anesthesia Start Date: 08/22/23 Anesthesia Start Time: 10:25 Stop Date/Time Anesthesia Stop Date: 08/22/23 Anesthesia Stop Time: 10:51
--- NOTE | 2023-08-22 11:01 | W.ANESCHARGE ---
Anesthesia Charges Start Date/Time Anesthesia Start Date: 08/22/23 Anesthesia Start Time: 10:25 Stop Date/Time Anesthesia Stop Date: 08/22/23 Anesthesia Stop Time: 10:51
== END 2023-08-22 09:18 | disposition home or self-care (01) ==
LOC: OP CLINIC 09:18
PROVIDERS: PCP Physician Assistant Medical; Visit Provider Surgery
DX: Z12.11 Encounter for screening for malignant neoplasm of colon (principal)
CPT/HCPCS: 00811; 00812; 45378; J2704

== ENCOUNTER 2024-06-22 07:47 | Outpatient (CLI) | payer BC, SELFPAY ==
--- NOTE | 2024-06-22 07:45 | CRLHL7_ITS ---
For Patients: As a result of the Century Cures Act, medical imaging exams and procedure reports are released immediately into your electronic medical record. You may view this report before your referring provider. If you have questions, please contact your health care provider. BILATERAL SCREENING MAMMOGRAM WITH COMPUTER-AIDED DETECTION AND TOMOSYNTHESIS TECHNIQUE: CC and MLO views were obtained. These mammographic images have been obtained using full-field digital technique. These mammographic images were interpreted with the benefit of computer-aided detection. Breast tomosynthesis was used in this interpretation. COMPARISON FILM: 06/03/23, 06/01/22, 05/19/21. FINDINGS: The breasts are heterogeneously dense, which may obscure small masses. IMPRESSION: There is no radiographic evidence for malignancy. ASSESSMENT: BI-RADS Category 1: Negative RECOMMENDATION: Routine screening mammogram in 1 year. A lay language report of this examination will be provided to the patient. RENE TERESA M.D. Diagnostic Radiologist [email or web address] Transcribed: 06/29/2024, 5:[address]/Dictated by: Rene Teresa MD @ 06/29/2024 10:23:00 AM (Electronically Signed)
== END 2024-06-22 07:48 | disposition home or self-care (01) ==
LOC: MAMMO 07:48
PROVIDERS: PCP Physician Assistant Medical; Visit Provider Physician Assistant Medical
DX: Z12.31 Encounter for screening mammogram for malignant neoplasm of breast (principal); R92.333 Mammographic heterogeneous density, bilateral breasts
CPT/HCPCS: 77063; 77067